=== PATIENT | male | born 1965 | race African-American/Black ===

== ENCOUNTER 2017-05-22 20:15 | Emergency (ER) | payer MEDICAID ==
[~2017-05-22] VITALS: Ht 177.8 cm; Wt 110.0 kg
[~2017-05-22 20:15] MED LIST: DIAZ5 PO; DYAZ37.52 PO; HYDR2TAB PO; METO50TA PO; PERC10TA27 PO; SOMA350T PO
[2017-05-22 20:18] VITALS: BP 174/104; PULSE 89; RESP 16; TEMP 97.6; O2SAT 97
[2017-05-22 20:50] VITALS: BP 135/77; PULSE 84; RESP 16; O2SAT 99
--- NOTE | 2017-05-22 20:57 | PD ---
HPI Chief Complaint: Injury Time Seen by Provider: 20:52 Travel History International Travel<30 days: No Contact w/Intl Traveler<30days: No Traveled to known affect area: No History of Present Illness HPI STATES THAT HE HAS A LONG STANDING HISTORY OF ARTHRITIS AND OVER LAST FEW DAYS THERE HAS BEEN SWELLING TO RIGHT WRIST WHICH IS FLARED UP WORSE THAN USUAL. DENIES NEW TRAUMA. 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) Immunizations Current: Yes Tetanus Vaccination: Unknown Influenza Vaccination: No Social History Alcohol Use: Yes (2 GLASSES OF WINE/NIGHT) Tobacco Use: No Substance Use: No Allergies-Medications (Allergen,Severity, Reaction): Coded Allergies: No Known Allergies (Verified , 05/22/17) Reported Meds & Prescriptions Reported Meds & Active Scripts Active Reported Zanaflex (Tizanidine HCl) 6 Mg Cap 6 Mg PO TID Gabapentin 300 Mg Cap 300 Mg PO TID Amlodipine (Amlodipine Besylate) 10 Mg Tab 10 Mg PO DAILY Lortab (Hydrocodone-Acetaminophen) 10-325 Mg Tab 1 Tab PO Q6H PRN Review of Systems Except as stated in HPI: all other systems reviewed are Neg Musculoskeletal: Positive: Pain Physical Exam Narrative GENERAL: SKIN: Warm and dry. NO STREAKING, NO CELLULITIC CHANGES NOTED TO RIGHT WRIST. FROM DISTALLY AT DIGITS HEAD: Atraumatic. Normocephalic. EYES: Pupils equal and round. No scleral icterus. No injection or drainage. ENT: No nasal bleeding or discharge. Mucous membranes pink and moist. NECK: Trachea midline. No JVD. CARDIOVASCULAR: Regular rate and rhythm. RESPIRATORY: No accessory muscle use. Clear to auscultation. Breath sounds equal bilaterally. GASTROINTESTINAL: Abdomen soft, non-tender, nondistended. MUSCULOSKELETAL: Extremities without clubbing, cyanosis, BUT MINIMAL RIGHT WRIST edema OVER DORSUM OF WRIST/EXTENSOR ASPECT. No obvious deformities. NEUROLOGICAL: Awake and alert. No obvious cranial nerve deficits. Motor grossly within normal limits. Five out of 5 muscle strength in the arms and legs. Normal speech. PSYCHIATRIC: Appropriate mood and affect; insight and judgment normal. Data Data Last Documented VS Vital Signs Date Time Temp Pulse Resp B/P (MAP) Pulse Ox O2 Delivery O2 Flow Rate FiO2 05/22/17 21:33 80 16 185/118 (140) 100 Room Air 9/16/17 20:18 97.6 Orders Orders Wrist, Complete ([id number]) (05/22/17 ) Clonidine (Catapres) (05/22/17 21:15) MDM Medical Decision Making Medical Screen Exam Complete: Yes Emergency Medical Condition: Yes Medical Record Reviewed: Yes Differential Diagnosis FX V DISLOCATION V ARTHRITIC EDEMA Narrative Course PATIENT WAS EVALUATED, XRAY C/W OA AND EXAMINATION C/W ARTHRITIC FINDINGS, NO CELLULITIS NOTED Diagnosis Primary Impression: OSTEOARTHRITIS Scripts Ketorolac (Ketorolac) 10 Mg Tab 10 MG PO TID Y for Pain Management, #15 TAB 0 Refills Prov: Rommel Ch MD 05/22/17 Disposition: 01 DISCHARGE HOME Condition: Stable Rommel Ch MD May 22, 2017 20:57
[2017-05-22] MEDS ORDERED: cloNIDine HCL 0.1 MG TAB PO ONE (21:15)
[2017-05-22] MEDS ORDERED: HYDR-3535 PO (21:28)
[2017-05-22] MEDS ORDERED: ZANA6CAP PO (21:28)
[2017-05-22] MEDS ORDERED: GABA300C5 PO (21:28)
[2017-05-22] MEDS ORDERED: AMLO10TA2 PO (21:28)
--- NOTE | 2017-05-22 21:29 | RADRPT ---
EXAM DATE/TIME: 05/22/2017 21:17 [facility] COMPARISON: Report only WRIST RIGHT COMPLETE ([id number]), November 11, 2011, 13:37. INDICATIONS : Pain- possible arthritis. MEDICAL HISTORY : Hypertension. HNP. SURGICAL HISTORY : None. ENCOUNTER: Initial ACUITY: 1 day PAIN SCORE: 8/10 LOCATION: Right Wrist. FINDINGS: Joint space narrowing with cystic change seen of the lunate, scaphoid and capitate as well as the rad iocarpal joint. The joint space narrowing is mild. There is increased density along the dorsal carpus seen on the lateral view. Old, healed fifth metacarpal fracture. CONCLUSION: Mild radial sided joint space narrowing with multifocal bony cystic change, most typical of osteoarth ritis. No fracture or subluxation. Geovany Hernandez MD on May 22, 2017 at 21:25 Board Certified Radiologist. This report was verified electronically.
[2017-05-22 21:33] VITALS: BP 185/118; PULSE 80; RESP 16; O2SAT 100
[2017-05-22] MEDS ORDERED: KETO10 PO (21:42)
[2017-05-22 22:10] VITALS: BP 175/106; PULSE 80; RESP 16; O2SAT 98
== END 2017-05-22 22:19 | disposition home or self-care (01) ==
LOC: NEPD 20:15
DX: M19.031 Primary osteoarthritis, right wrist (principal); I10 Essential (primary) hypertension
CPT/HCPCS: 73110; 99283